=== PATIENT | male | born 1945 | race Caucasian/White ===

== ENCOUNTER 2024-11-20 09:37 | Emergency (ER) | payer MEDICARE, BC ==
[2024-11-20] MEDS: Diphtheria,Pertussis(Acell),Tetanus Vaccine 0.5 ML Syringe IM ONE (10:42)
== END 2024-11-20 11:05 | disposition home or self-care (01) ==
LOC: JD.ED 09:37
DX: S51.812A Laceration without foreign body of left forearm, initial encounter (principal); S00.81XA Abrasion of other part of head, initial encounter; Z23 Encounter for immunization; Z79.82 Long term (current) use of aspirin; W18.39XA Other fall on same level, initial encounter; Y93.89 Activity, other specified
CPT/HCPCS: 90471; 90715; 99282; 99283